=== PATIENT | female | born 1960 ===

== ENCOUNTER 2017-02-24 14:25 | Inpatient (IN) | payer OTHER ==
[2017-02-24 14:25] VITALS: BMI 25.4
--- NOTE | 2017-02-24 14:58 | C.PDOC ---
History Of Present Illness 56 y/o with a hx of hypolipidemia, HTN, and HIV with an unknown CD 4 count and viral load, comes in for right sided weakness and slurred speech for 2 days. Patient was sent by his director of primary for evaluation. Patient has a hx of previous strokes without residual deficits. Denies fever, chills, cough, or any other complaints. Time Seen by Provider: 02/24/17 14:34 Chief Complaint (Nursing): High Blood Pressure History Per: Patient History/Exam Limitations: no limitations Onset/Duration Of Symptoms: Days (2) Current Symptoms Are (Timing): Still Present Associated Symptoms: denies: Blurred Vision, Focal Weakness, Headache Severity: Mild Recent travel outside of the [place]: No Additional History Per: Patient Past Medical History Reviewed: Historical Data, Nursing Documentation, Vital Signs Vital Signs: Last Vital Signs Temp 98.1 F 02/24/17 14:29 Pulse 64 02/24/17 16:38 Resp 16 02/24/17 16:38 BP 161/78 H 02/24/17 16:38 Pulse Ox 99 02/24/17 18:02 - Medical History PMH: HIV, HTN Denies: Chronic Kidney Disease Surgical History: CABG - [facility] Procedures EXCISION OF STOMACH, ENDO, DIAGN (03/02/15) FLUOROSCOPY OF LEFT HEART USING LOW OSMOLAR CONTRAST (03/02/15) FLUOROSCOPY OF MULT COR ART USING L OSM CONTRAST (03/02/15) MEASURE OF CARDIAC SAMPL & PRESSURE, L HEART, PERC APPROACH (03/02/15) Family History: States: Unknown Family Hx - Social History Hx Alcohol Use: No Hx Substance Use: Yes (former) - Immunization History Hx Tetanus Toxoid Vaccination: No Hx Influenza Vaccination: Yes Hx Pneumococcal Vaccination: Yes Review Of Systems Except As Marked, All Systems Reviewed And Found Negative. Constitutional: Negative for: Fever, Chills Eyes: Negative for: Vision Change Respiratory: Negative for: Cough Neurological: Positive for: Change in Speech (slurred), Other (Right sided weakness). Negative for: Weakness, Numbness, Headache Physical Exam - Physical Exam Appears: Non-toxic, No Acute Distress Skin: Warm, Dry Head: Atraumatic, Normacephalic Oral Mucosa: Moist Cardiovascular: Rhythm Regular, No Murmur Respiratory: Normal Breath Sounds, No Rales, No Rhonchi, No Wheezing Gastrointestinal/Abdominal: Soft, No Tenderness Extremity: Normal ROM (x4) Neurological/Psych: Oriented x3, No Normal Speech (Slurred speech), Normal Cognition, Other (No focal deficit) ED Course And Treatment - Laboratory Results Result Diagrams: 02/24/17 15:18 02/24/17 15:18 O2 Sat by Pulse Oximetry: 99 (RA) Pulse Ox Interpretation: Normal - CT Scan/US CT Head w/o/ Other Rad Studies (CT/US): Interpreted By Me, Read By Radiologist CT/US Interpretation: IMPRESSION: Generalized atrophy. Nonspecific white matter changes. 6 mm left basal ganglia chronic lacunar infarct. Small fluid/ opacification of the left mastoid air cells; correlate clinically for mastoiditis. Partial opacification of bilateral external auditory canals, likely cerumen. NIHSS Stroke Scale - How Severe is the Stoke Level of Consciousness: 0=Alert LOC to Questions: 0=Both comments correct LOC to commands: 0=Obeys both correctly Best Gaze: 0=Normal Visual: 0=No visual loss Facial: 1=Minor asymmetry Motor Arm - Left: 0=No drift Motor Arm - Right: 1=Drift noted before 10 sec Motor Leg - Left: 0=No drift Motor Leg - Right: 1=Drift before 5 sec Limb Ataxia: 0=Absent Sensory: 0=Normal Best Language: 1=Mild to moderate aphasia Dysarthia: 1=Mild to moderate slurring Extinction & Inattention (Neglect): 0=Normal, no object Score: 5 Severity Of Stroke: 5-15= Moderate Stroke rTPA Inclusion/Exclusion - Refusal of Treatment Patient Refused Treatment: No - Inclusion Criteria for Altepase Patient is 18 years or Older: Yes The Clinical Diagnosis of Ischemic Stroke That is Causing a Potentially Disabling Neurological Deficit: No Time of Onset is Well Established to be Less Than 270 Minute Before Treatment Would Begin: No Risk/Benefit Discussed With Patient/Family Member Present: No Medical Decision Making Medical Decision Making: Plans: * Blood labs * CT Head w/o * EKG * CXR * IV fluids * UA Disposition - Disposition Disposition: HOSPITALIZED Disposition Time: 04:00 Condition: STABLE - Clinical Impression Clinical Impression: Weakness - Scribe Statement The provider has reviewed the documentation as recorded by the Scribe [email or web address] All medical record entries made by the Scribe were at my direction and personally dictated by me. I have reviewed the chart and agree that the record accurately reflects my personal performance of the history, physical exam, medical decision making, and the department course for this patient. I have also personally directed, reviewed, and agree with the discharge instructions and disposition. Decision To Admit - Pt Status Changed To: Hospital Disposition Of: Inpatient - Admit Certification Admit to Inpatient:: After my assessment, the patient will require hospitalization for at least two midnights. This is because of the severity of symptoms shown, intensity of services needed, and/or the medical risk in this patient being treated as an outpatient. - InPatient: Physician Admission Certification: I certify that this patient requires 2 or more midnights of care for the following reason:: suspected cva - . Bed Request Type: Telemetry Admitting Physician: Marco Sepulveda Patient Diagnosis: Weakness
[2017-02-24 15:25] LABS: BASO # 0.1 K/uL (0.0-0.2); EOS # 0.2 K/uL (0.0-0.7); EOS % 1.8 % (0.0-4.0); HEMATOCRIT 39.8 % (34.0-47.0); LYMPH # 2.8 K/uL (1.0-4.3); LYMPH % 31.7 % (20.0-40.0); MEAN CORPUSCULAR HEMOGLOBIN 29.4 pg (27.0-31.0); MEAN CORPUSCULAR HGB CONC 33.2 g/dL (33.0-37.0); MEAN PLATELET VOLUME 8.3 fL (7.2-11.7); MONO # 0.6 K/uL (0.0-0.8); NRBC % 0.1 % (0.0-2.0); RED CELL DISTRIBUTION WIDTH 15.1 % (11.5-14.5)
[2017-02-24 15:27] LABS: WHITE BLOOD COUNT 8.9 K/uL (4.8-10.8)
[2017-02-24 15:28] LABS: MEAN CELL VOLUME 88.5 fL (81.0-99.0)
[2017-02-24 15:33] LABS: CHLORIDE 99 mmol/L (98-107)
[2017-02-24 15:34] LABS: SODIUM 136 mmol/L (132-148)
[2017-02-24 15:35] LABS: POTASSIUM 3.8 mmol/L (3.6-5.2)
[2017-02-24 15:36] LABS: CARBON DIOXIDE 26 mmol/L (22-30); CHOLESTEROL 143 mg/dL (0-199); GFR AFRICAN-AMERICAN > 60
[2017-02-24 15:37] LABS: ALKALINE PHOSPHATASE 83 U/L (38-126); ALT/SGPT 36 U/L (9-52); AST/SGOT 24 U/L (14-36); BILIRUBIN,TOTAL 0.8 mg/dL (0.2-1.3); BLOOD UREA NITROGEN 20 mg/dL (7-17); CALCIUM 9.2 mg/dl (8.6-10.4); GLUCOSE,RANDOM 86 mg/dL (65-105); TOTAL PROTEIN 9.6 g/dL (6.3-8.3)
--- NOTE | 2017-02-24 15:59 | CT ---
PROCEDURE: CT HEAD WITHOUT CONTRAST. HISTORY: weakness COMPARISON: Noncontrast head CT performed 03/02/15 TECHNIQUE: Axial computed tomography images were obtained through the head/brain without intravenous contrast. Radiation dose: Total exam DLP = 786.84 mGy-cm. This CT exam was performed using one or more of the following dose reduction techniques: Automated exposure control, adjustment of the mA and/or kV according to patient size, and/or use of iterative reconstruction technique. FINDINGS: HEMORRHAGE: No intracranial hemorrhage. BRAIN: Diffuse atrophy with prominence of the ventricles and sulci noted. No mass effect or edema. Scattered periventricular and subcortical white matter hypodensities, which are nonspecific, but often seen with chronic microvascular ischemic disease. 6 mm left basal ganglia chronic lacunar infarct. Please note that MRI with diffusion imaging is more sensitive in the detection of acute ischemic event. VENTRICLES: No hydrocephalus. CALVARIUM: Unremarkable. PARANASAL SINUSES: Unremarkable as visualized. No significant inflammatory changes. MASTOID AIR CELLS: Small fluid/ opacification of the left mastoid air cells; correlate clinically for mastoiditis. The right mastoid air cells appear clear. OTHER FINDINGS: Partial opacification of bilateral external auditory canals, likely cerumen. IMPRESSION: Generalized atrophy. Nonspecific white matter changes. 6 mm left basal ganglia chronic lacunar infarct. Small fluid/ opacification of the left mastoid air cells; correlate clinically for mastoiditis. Partial opacification of bilateral external auditory canals, likely cerumen.
[2017-02-24 16:28] LABS: RBC URINE 6 /hpf (0-3); URINE BACTERIA RARE (<OCC); URINE BILIRUBIN NEGATIVE (NEGATIVE); URINE COLOR Yellow (YELLOW); URINE GLUCOSE (UA) NORMAL (Normal); URINE KETONE NEGATIVE (NEGATIVE); URINE LEUKOCYTE ESTERASE NEG Leu/uL (Negative); URINE PROTEIN NEGATIVE (NEGATIVE); URINE UROBILINOGEN NORMAL mg/dL (0.2-1.0); WBC URINE 2 /hpf (0-5)
[2017-02-24 16:30] LABS: URINE BLOOD 1+ (NEGATIVE)
--- NOTE | 2017-02-24 17:23 | RAD ---
HISTORY: weakness COMPARISON: Chest x-ray performed 03/01/15 TECHNIQUE: Chest, one view. FINDINGS: LUNGS: No focal consolidation. Please note that chest x-ray has limited sensitivity for the detection of pulmonary masses. PLEURA: No significant pleural effusion identified. No definite pneumothorax . CARDIOVASCULAR: Median sternotomy wires with evidence of CABG. Heart size appears within normal limits. OSSEOUS STRUCTURES: Degenerative changes. VISUALIZED UPPER ABDOMEN: Unremarkable. OTHER FINDINGS: None. IMPRESSION: No focal consolidation, significant pleural effusion, or definite pneumothorax identified.
[2017-02-24] MEDS ORDERED: Gadodiamide 287 MG/ML VIAL (15ML) IV ONE (17:28)
[2017-02-24] MEDS: Nitroglycerin 2% Ointment Foilpak UD TOP SCH (19:36)
--- NOTE | 2017-02-24 22:58 | CP.PCM.HP ---
History of Present Illness - History of Present Illness History of Present Illness: CC: right sided weakness HPI: 56 y/o female with a hx of AIDS, hypolipidemia, HTN, and HIV with an unknown CD 4 count and viral load, comes in for right sided weakness and slurred speech for 2 days. pt is complaint with diet, medication and follow up.Patient was sent by his national park ranger for evaluation. Patient has a hx of previous strokes without residual deficits. Denies fever, chills, cough, or any other complaints. Present on Admission - Present on Admission Any Indicators Present on Admission: Yes Review of Systems - Review of Systems Systems not reviewed;Unavailable: Acuity of Condition - Constitutional Constitutional: Fatigue, Lethargy - EENT Eyes: absent: As Per HPI, Blind Spots, Blurred Vision, Change in Vision, Decreased Night Vision, Diplopia, Discharge, Dry Eye, Exophthalmos, Floaters, Irritation, Itchy Eyes, Loss of Peripheral Vision, Pain, Photophobia, Requires Corrective Lenses, Sees Flashes, Spots in Vision, Tunnel Vision, Other Visual Disturbances, Loss of Vision, Other Ears: absent: As Per HPI, Decreased Hearing, Ear Discharge, Ear Pain, Tinnitus, Abnormal Hearing, Disequilibrium, Dizziness, Other Nose/Mouth/Throat: absent: As Per HPI, Epistaxis, Nasal Congestion, Nasal Discharge, Nasal Obstruction, Nasal Trauma, Nose Pain, Post Nasal Drip, Sinus Pain, Sinus Pressure, Bleeding Gums, Change in Voice, Dental Pain, Dry Mouth, Dysphagia, Halitosis, Hoarsness, Lip Swelling, Mouth Lesions, Mouth Pain, Odynophagia, Sore Throat, Throat Swelling, Tongue Swelling, Facial Pain, Neck Pain, Neck Mass, Other - Genitourinary Genitourinary: absent: As Per HPI, Change in Urinary Stream, Difficulty Urinating, Dysuria, Flank Pain, Hematuria, Pyuria, Nocturia, Urinary Incontinence, Urinary Frequency, Urinary Hesitance, Urinary Urgency, Voiding Freq/Small Amts, Freq UTI, Hx Renal/Bladder Calculi, Hx /Renal Surgery, Bladder Distension, Other - Reproductive: Female Reproductive:Female: absent: As Per HPI, Amenorrhea, Amenorrhea/ Control, Currently Menstual, Cycle <21 Days, Cycle >35 Days, Cycle Variable, Menses 1-7 Days, Menses >/= 8 Days, Menses Variable, Cycle > 4 Weeks Between, No Menses for 6 Months, Heavy Menses, Light Menses, Normal Menses, Spotting Between Cycles , S/P Hysterectomy, Menopausal, Post Menopausal, Premenarche, Abnormal Vaginal Bleeding, Dysmenorrhea, Dyspareunia, Genital Lesions, Genital Pruritis, Pelvic Pain, Prolapse Symptoms, Sexual Dysfunction, Vaginal Discharge, Vaginal Dryness , Vaginal Odor, Vaginal Pruritis, Other - Musculoskeletal Musculoskeletal: absent: As Per HPI, Abnormal Gait, Arthralgias, Atrophy, Back Pain, Deformity, Joint Swelling, Limited Range of Motion, Loss of Height, Muscle Cramps, Muscle Weakness, Myalgias, Neck Pain, Numbness, Radiating Pain into Limb, Stiffness, Tingling, Other - Neurological Neurological: Focal Weakness. absent: As Per HPI, Abnormal Gait, Abnormal Hearing, Abnormal Movements, Abnormal Speech, Behavioral Changes, Burning Sensations, Confusion, Convulsions, Disequilibrium, Dizziness, Numbness, Frequent Falls, Headaches, Lack of Coordination, Loss of Vision, Memory Loss, Paresthesias, Radicular Pain, Restless Legs, Sensory Deficit, Syncope, Tingling , Tremor, Vertigo, Weakness, Other Visual Disturbances, Other - Psychiatric Psychiatric: absent: As Per HPI, Abnormal Sleep Pattern, Anhedonia, Anxiety, Auditory Hallucinations, Behavioral Changes, Change in Appetite, Change in Libido, Confusion, Depression, Difficulty Concentrating, Hallucinations, Homicidal Ideation, Hopelessness, Irritability, Memory Loss, Mood Swings, Panic Attacks, Paranoia, Suicidal Ideation, Visual Hallucinations, Tactile Hallucinations, Other Past Patient History - Past Medical History & Family History Past Medical History?: Yes - Past Social History Smoking Status: Former Smoker - CARDIAC Hx Hypertension: Yes - PULMONARY Hx Respiratory Disorders: No - NEUROLOGICAL Hx Neurological Disorder: No - HEENT Hx HEENT Problems: No - RENAL Hx Chronic Kidney Disease: No - ENDOCRINE/METABOLIC Hx Endocrine Disorders: No - HEMATOLOGICAL/ONCOLOGICAL Hx Human Immunodeficiency Virus (HIV): Yes - INTEGUMENTARY Hx Dermatological Problems: No - MUSCULOSKELETAL/RHEUMATOLOGICAL Hx Musculoskeletal Disorders: No Hx Falls: No - GASTROINTESTINAL Hx Gastrointestinal Disorders: No - GENITOURINARY/GYNECOLOGICAL Hx Genitourinary Disorders: No - PSYCHIATRIC Hx Substance Use: Yes (former) - SURGICAL HISTORY Hx Coronary Artery Bypass Graft: Yes - ANESTHESIA Hx Anesthesia: Yes Hx Anesthesia Reactions: No Hx Malignant Hyperthermia: No Meds Allergies/Adverse Reactions: Allergies Allergy/AdvReac Type Severity Reaction Status Date / Time No Known Allergies Allergy Verified 02/24/17 14:31 Physical Exam - Constitutional Appears: No Acute Distress - Head Exam Head Exam: ATRAUMATIC, NORMAL INSPECTION, NORMOCEPHALIC - Eye Exam Eye Exam: EOMI, Normal appearance, PERRL Pupil Exam: NORMAL ACCOMODATION, PERRL - Respiratory Exam Respiratory Exam: Clear to Auscultation Bilateral - Cardiovascular Exam Cardiovascular Exam: REGULAR RHYTHM - Rectal Exam Rectal Exam: Deferred Results - Vital Signs Recent Vital Signs: Last Vital Signs Temp 97.6 F 02/24/17 20:59 Pulse 58 L 02/24/17 20:59 Resp 20 02/24/17 20:59 BP 143/72 02/24/17 20:59 Pulse Ox 100 02/24/17 20:59 - Labs Result Diagrams: 02/24/17 15:18 02/24/17 15:18 Labs: Laboratory Results - last 24 hr 02/24/17 02/24/17 02/24/17 15:18 15:18 15:18 WBC 8.9 D RBC 4.50 Hgb 13.2 D Hct 39.8 MCV 88.5 D MCH 29.4 MCHC 33.2 RDW 15.1 H Plt Count 219 D MPV 8.3 Neut % (Auto) 58.5 Lymph % (Auto) 31.7 [place] % (Auto) 7.0 Eos % (Auto) 1.8 Baso % (Auto) 1.0 Neut # 5.2 Lymph # 2.8 [place] # 0.6 Eos # 0.2 Baso # 0.1 PT 11.5 INR 1.0 APTT 33 Sodium 136 Potassium 3.8 Chloride 99 Carbon Dioxide 26 Anion Gap 16 BUN 20 H Creatinine 0.8 Est GFR ( Amer) > 60 Est GFR (Non-Af Amer) > 60 Random Glucose 86 Hemoglobin A1c Calcium 9.2 Total Bilirubin 0.8 AST 24 ALT 36 Alkaline Phosphatase 83 Troponin I < 0.0120 Total Protein 9.6 H Albumin 4.8 Globulin 4.8 H Albumin/Globulin Ratio 1.0 Triglycerides 166 H D Cholesterol 143 LDL Cholesterol Direct 67 HDL Cholesterol 45 Urine Color Urine Clarity Urine pH Ur Specific [place] Urine Protein Urine Glucose (UA) Urine Ketones Urine Blood Urine Nitrate Urine Bilirubin Urine Urobilinogen Ur Leukocyte Esterase Urine WBC (Auto) Urine RBC (Auto) Ur Squamous Epith Cells Urine Bacteria Blood Type Antibody Screen 02/24/17 02/24/17 02/24/17 15:18 15:18 16:03 WBC RBC Hgb Hct MCV MCH MCHC RDW Plt Count MPV Neut % (Auto) Lymph % (Auto) [place] % (Auto) Eos % (Auto) Baso % (Auto) Neut # Lymph # [place] # Eos # Baso # PT INR APTT Sodium Potassium Chloride Carbon Dioxide Anion Gap BUN Creatinine Est GFR ( Amer) Est GFR (Non-Af Amer) Random Glucose Hemoglobin A1c 5.6 Calcium Total Bilirubin AST ALT Alkaline Phosphatase Troponin I Total Protein Albumin Globulin Albumin/Globulin Ratio Triglycerides Cholesterol LDL Cholesterol Direct HDL Cholesterol Urine Color Yellow Urine Clarity Clear Urine pH 6.0 Ur Specific [place] 1.021 Urine Protein Negative Urine Glucose (UA) Normal Urine Ketones Negative Urine Blood 1+ H Urine Nitrate Negative Urine Bilirubin Negative Urine Urobilinogen Normal Ur Leukocyte Esterase Neg Urine WBC (Auto) 2 Urine RBC (Auto) 6 H Ur Squamous Epith Cells 2 Urine Bacteria Rare Blood Type O POSITIVE Antibody Screen Negative Assessment & Plan (1) TIA (transient ischemic attack) Status: Acute (2) Weakness Status: Acute (3) Anemia Status: Acute (4) HIV (human immunodeficiency virus infection) Status: Acute (5) HTN (hypertension) Status: Acute
[2017-02-25] MEDS: Nitroglycerin 2% Ointment Foilpak UD TOP SCH ×4 (01:30→18:31)
--- NOTE | 2017-02-25 06:19 | CP.PCM.CON ---
History of Present Illness - History of Present Illness History of Present Illness: CONSULT DICTATED RIGHT HEMIPARESIS DUE TO LEFT SUBCORTICAL ISCHEMIA MRI EXT CAPS SUBACUTE STROKE ASA FAILURE - ADDED PLAVIX PT CAROTID/ECHO/EEG CARDIO AND ID TO FOLLOW Past Patient History - Past Medical History & Family History Past Medical History?: Yes - Past Social History Smoking Status: Former Smoker - CARDIAC Hx Hypertension: Yes - PULMONARY Hx Respiratory Disorders: No - NEUROLOGICAL Hx Neurological Disorder: No - HEENT Hx HEENT Problems: No - RENAL Hx Chronic Kidney Disease: No - ENDOCRINE/METABOLIC Hx Endocrine Disorders: No - HEMATOLOGICAL/ONCOLOGICAL Hx Human Immunodeficiency Virus (HIV): Yes - INTEGUMENTARY Hx Dermatological Problems: No - MUSCULOSKELETAL/RHEUMATOLOGICAL Hx Musculoskeletal Disorders: No Hx Falls: No - GASTROINTESTINAL Hx Gastrointestinal Disorders: No - GENITOURINARY/GYNECOLOGICAL Hx Genitourinary Disorders: No - PSYCHIATRIC Hx Substance Use: Yes (former) - SURGICAL HISTORY Hx Coronary Artery Bypass Graft: Yes - ANESTHESIA Hx Anesthesia: Yes Hx Anesthesia Reactions: No Hx Malignant Hyperthermia: No Meds Allergies/Adverse Reactions: Allergies Allergy/AdvReac Type Severity Reaction Status Date / Time No Known Allergies Allergy Verified 02/24/17 14:31 - Medications Medications: Current Medications Aspirin (Ecotrin) 81 mg PO DAILY [facility] Clopidogrel Bisulfate (Plavix) 75 mg PO DAILY [facility] Darunavir (Prezista) 800 mg PO DAILY [facility] Emtricitabine/Tenofovir (Truvada 200 Mg-300 Mg) 1 tab PO DAILY [facility] Enalapril Maleate (Vasotec) 10 mg PO DAILY [facility] Enoxaparin Sodium (Lovenox) 40 mg SC DAILY [facility] Hydrochlorothiazide (Hydrodiuril) 25 mg PO DAILY [facility] Metoprolol Succinate (Toprol Xl) 50 mg PO DAILY [facility] Nitroglycerin (Nitro-Bid 2% Oint) 1 ea TOP Q6H [facility] Last Admin: 02/25/17 01:30 Dose: Not Given Ritonavir (Norvir) 100 mg PO DAILY [facility] Rosuvastatin Calcium (Crestor) 10 mg PO HS [facility] Last Admin: 02/24/17 23:14 Dose: 10 mg Results - Vital Signs Recent Vital Signs: Last Vital Signs Temp 98.2 F 02/25/17 04:00 Pulse 59 L 02/25/17 04:00 Resp 20 02/25/17 04:00 BP 142/81 02/25/17 04:00 Pulse Ox 96 02/25/17 04:00 - Labs Result Diagrams: 02/24/17 15:18 02/24/17 15:18 Labs: Laboratory Results - last 24 hr 02/24/17 02/24/17 02/24/17 15:18 15:18 15:18 WBC 8.9 D RBC 4.50 Hgb 13.2 D Hct 39.8 MCV 88.5 D MCH 29.4 MCHC 33.2 RDW 15.1 H Plt Count 219 D MPV 8.3 Neut % (Auto) 58.5 Lymph % (Auto) 31.7 [place] % (Auto) 7.0 Eos % (Auto) 1.8 Baso % (Auto) 1.0 Neut # 5.2 Lymph # 2.8 [place] # 0.6 Eos # 0.2 Baso # 0.1 PT 11.5 INR 1.0 APTT 33 Sodium 136 Potassium 3.8 Chloride 99 Carbon Dioxide 26 Anion Gap 16 BUN 20 H Creatinine 0.8 Est GFR ( Amer) > 60 Est GFR (Non-Af Amer) > 60 Random Glucose 86 Hemoglobin A1c Calcium 9.2 Total Bilirubin 0.8 AST 24 ALT 36 Alkaline Phosphatase 83 Troponin I < 0.0120 Total Protein 9.6 H Albumin 4.8 Globulin 4.8 H Albumin/Globulin Ratio 1.0 Triglycerides 166 H D Cholesterol 143 LDL Cholesterol Direct 67 HDL Cholesterol 45 Urine Color Urine Clarity Urine pH Ur Specific [place] Urine Protein Urine Glucose (UA) Urine Ketones Urine Blood Urine Nitrate Urine Bilirubin Urine Urobilinogen Ur Leukocyte Esterase Urine WBC (Auto) Urine RBC (Auto) Ur Squamous Epith Cells Urine Bacteria Blood Type Antibody Screen 02/24/17 02/24/17 02/24/17 15:18 15:18 16:03 WBC RBC Hgb Hct MCV MCH MCHC RDW Plt Count MPV Neut % (Auto) Lymph % (Auto) [place] % (Auto) Eos % (Auto) Baso % (Auto) Neut # Lymph # [place] # Eos # Baso # PT INR APTT Sodium Potassium Chloride Carbon Dioxide Anion Gap BUN Creatinine Est GFR ( Amer) Est GFR (Non-Af Amer) Random Glucose Hemoglobin A1c 5.6 Calcium Total Bilirubin AST ALT Alkaline Phosphatase Troponin I Total Protein Albumin Globulin Albumin/Globulin Ratio Triglycerides Cholesterol LDL Cholesterol Direct HDL Cholesterol Urine Color Yellow Urine Clarity Clear Urine pH 6.0 Ur Specific [place] 1.021 Urine Protein Negative Urine Glucose (UA) Normal Urine Ketones Negative Urine Blood 1+ H Urine Nitrate Negative Urine Bilirubin Negative Urine Urobilinogen Normal Ur Leukocyte Esterase Neg Urine WBC (Auto) 2 Urine RBC (Auto) 6 H Ur Squamous Epith Cells 2 Urine Bacteria Rare Blood Type O POSITIVE Antibody Screen Negative
--- NOTE | 2017-02-25 09:05 | CON ---
NEUROLOGY CONSULTATION DATE: 02/25/2017 ATTENDING PHYSICIAN: Marco Sepulveda MD LOCATION: The patient's room no #657, bed A. REASON FOR CONSULTATION: New right-sided weakness. CHIEF COMPLAINT: The patient was brought into [facility] as per the advice from her Water Valve Mechanic because of her 2 days history of left-sided numbness and weakness. From neurological point of view, I was called in to evaluate for further management. HISTORY OF PRESENT ILLNESS: Ms. Diana Acevedo is a 56-year-old right handed pleasant Qatari speaking female, usual state of health 2 days ago she woke up with right sided facial swelling and cramps on the right arm and leg. Since she had a stroke before in the past, she feel this symptom is similar to that and worsening than what she had before in the past. She also stumbling on her right side while she was walking. Slurred speech also presenting with these symptoms, however, she feels much better than before. Denies headache. No visual or bulbar dysfunction. No history of fall. No history of involuntary movements associating with this problem. PAST MEDICAL HISTORY: Hypertension, dyslipidemia, HIV disease, being diagnosed 16 years ago. History of coronary artery bypass surgery 2 years ago. PERSONAL HISTORY: History of heroin abuse 3 years ago, been stopped under rehab program in the past. She is also a former smoker and alcohol use, however, all have been stopped for the last 3 years ever since she had a stroke. REVIEW OF SYSTEMS: A 16-point of systems have been reviewed. From neuro, the patient had new weakness on her right side. MEDICATION AT HOME: She has been on aspirin, clonidine, Lipitor, enalapril, Norvir, metoprolol, Truvada, and Prezista. PHYSICAL EXAMINATION VITAL SIGNS: Blood pressure 142/81, mean arterial pressure of 101, respiratory rate 16, temperature afebrile. NECK: Supple. No carotid bruit on her left side. Right side, she had some soft bruits heard. HEART: Sounds split. Second heart sound with systolic murmur grade 1. Postsurgical scar seen in midsternal region. EXTREMITIES: No edema in legs. NEUROLOGIC: The patient is awake, alert, and oriented to person, place, and time. Her speech is clear. Naming, repetition, fluency, and comprehension all within normal. CRANIAL NERVE EXAMINATION: Visual field is intact. Pupil are reactive to light. Extraocular movement normal. No nystagmus. No facial sensory deficit. Significant facial asymmetry manifesting as flattening of the right nasolabial fold. Hearing intact. Good gag. Tongue is moist. MOTOR EXAMINATION: Outstretched hand with eyes closed, no drift noted. No tremor on outstretched hand. Strength is normal tone, is slightly increased on her right side to compare with the left side. DEEP TENDON REFLEXES: Absent for upper extremities, both knees are 3+, both ankles are absent. Plantars are upgoing on both sides. SENSORY EXAMINATION: Mild sensory and motor neuropathy. No cortical sensory loss. COORDINATION: Intact. Gait; hemiparetic gait on right side. WORKUP: CT of the head reviewed atrophy, periventricular ischemic changes. MRI of the brain also reviewed by me showed multiple periventricular ischemic changes noted from the brain all the way down to the brainstem. The patient also showed evidence of subacute stroke process in left external capsular region, which consisted with her current symptom. The patient also showed evidence of atrophy. Blood workup: WBC 8.9, hemoglobin 13.2, hematocrit 39.8, platelet 219. PT 11.5, INR 1.0, PTT 33. Sodium 136, potassium 3.8, chloride 99, bicarbonate 26, BUN 20, GFR more than 60, hemoglobin A1c 5.6, AST 24, ALT 36, troponin 0.0120, protein 9.6, triglyceride 166, cholesterol 143, LDL 67, HDL 45. Urinalysis shows 1+ blood with 6 rbc. EKG in sinus rhythm. CONCLUSION: Ms. Diana Acevedo has been presenting from the followin. Left subacute ischemic process manifesting with right hemiparesis. The patient has been failing with aspirin. 2. Bilateral distal symmetric sensorimotor neuropathy. 3. Multi infarction possible mild cognitive impairment. RECOMMENDATIONS: 1. Carotid Doppler/EEG/echocardiogram to be done to rule out any thrombogenesis and any probable electrophysiological activities consistent with the seizures. 2. ID followup and Cardiology followup was recommended. 3. I would like to put her on Plavix at least for 6 months when she is stable, we could switch back her to aspirin. While she is in the hospital, the patient definitely need physical therapy to improve her ambulation. 4. Continue with the present management. The patient will be followed while she is in the hospital. Frank Lopez MD [facility] # [id number]
[2017-02-25] MEDS: Enoxaparin 40 mg Syringe SC SCH (09:18)
[2017-02-25] MEDS: Emtricitabine-Tenofovir 200 mg-300 mg Tab PO SCH (09:18)
[2017-02-25] MEDS ORDERED: Metoprolol Succinate 50 mg XL Tab PO SCH (10:00)
--- NOTE | 2017-02-25 11:14 | MRI ---
PROCEDURE: MRI BRAIN WITH AND WITHOUT CONTRAST HISTORY: CVA COMPARISON: Noncontrast head CT from 02/24/2017 TECHNIQUE: Multiplanar, multisequence MR images of the brain were obtained with and without intravenous contrast enhancement. 12 mL Omniscan was injected intravenously. FINDINGS: HEMORRHAGE: None DWI: No evidence of an acute or early subacute infarction. BRAIN PARENCHYMA: There is an old lacunar infarction in the left powell radiata. There are severe chronic microangiopathic changes. There is no mass, mass effect or abnormal extra-axial fluid collection. The midline sagittal structures are normal. ENHANCEMENT: No abnormal intracranial enhancement. VENTRICLES: There is mild global parenchymal volume loss and proportionate enlargement of the ventricles and cortical sulci. CRANIUM: There is normal bone marrow signal pattern. ORBITS: Grossly unremarkable. PARANASAL SINUSES/MASTOIDS: There is mild mucosal thickening in the right maxillary sinus. The remaining included paranasal sinuses are predominantly clear. There is a large left mastoid effusion. The right mastoid air cells are clear P VASCULAR SYSTEM: There are normal signal voids in the larger intracranial arteries. OTHER FINDINGS: None . IMPRESSION: 1. No acute intracranial abnormality. Specifically, no evidence of acute infarction. 2. Old lacunar infarction in the left powell radiata. 3. Severe chronic microangiopathic changes and mild global parenchymal volume loss, slightly advanced for the patient's age. 4. Large left mastoid effusion. A preliminary report was provided by [employer].
[2017-02-25] MEDS ORDERED: Metoprolol Succinate 25 mg XL Tab PO SCH (11:30)
--- NOTE | 2017-02-25 12:19 | VASCLAB ---
PROCEDURE: HISTORY: Right sided weakness COMPARISON: Last carotid duplex exam 03/06/2015, normal. TECHNIQUE: Grayscale and duplex Doppler evaluation of the cervical carotid and vertebral arteries were performed. The common carotid, carotid bifurcations and cervical Internal Carotid Artery (ICA) and proximal External Carotid Artery (ECA) were evaluated. The vertebral arteries were evaluated for gross patency and flow direction. Report prepared by ELIZABETH Curry FINDINGS: RIGHT CAROTID ARTERIES: 1. Common Carotid Artery: No significant focal plaque formation of the right common carotid artery. Maximum Peak Systolic velocity: 74 cm/sec: End-diastolic velocity 13 cm/sec. 2. Carotid Bifurcation: plaque formation. Maximum Peak Systolic velocity: 45 cm/sec: End-diastolic velocity 11 cm/sec. 3. Internal Carotid Artery: Plaque description: 3.1. Proximal Segment: Peak systolic velocity 52 cm/sec: End-diastolic velocity 15 cm/sec - % stenosis 0-15% 3.2. Middle Segment: Peak systolic velocity 70 cm/sec: End-diastolic velocity 20 cm/sec - % stenosis 0-15% 3.3. Distal Segment: Peak systolic velocity 67 cm/sec: End-diastolic velocity 21 cm/sec - % stenosis 0-15% 4. External Carotid Artery: No significant focal plaque formation. Peak systolic velocity 79 cm/sec 5. ICA/CCA Ratio: 1.4 LEFT CAROTID ARTERIES: 1. Common Carotid Artery: No significant focal plaque formation of the left common carotid artery. Maximum Peak Systolic velocity: 61 cm/sec: End-diastolic velocity 14 cm/sec. 2. Carotid Bifurcation: Minimal calcific plaque formation. Maximum Peak Systolic velocity: 40 cm/sec: End-diastolic velocity 11 cm/sec. 3. Internal Carotid Artery: Plaque description: Minimal calcific 3.1. Proximal Segment: Peak systolic velocity 54 cm/sec: End-diastolic velocity 15 cm/sec - % stenosis 0-15% 3.2. Middle Segment: Peak systolic velocity 81 cm/sec: End-diastolic velocity 18 cm/sec - % stenosis 0-15% 3.3. Distal Segment: Peak systolic velocity 76 cm/sec: End-diastolic velocity 20 cm/sec - % stenosis 0-15% 4. External Carotid Artery: No significant focal plaque formation. Peak systolic velocity 77 cm/sec 5. ICA/CCA Ratio: 1.3 VERTEBRAL ARTERIES: 1. Right Vertebral Artery: The right vertebral artery flow direction is antegrade. 2. Left Vertebral Artery: The left vertebral artery flow direction is antegrade. OTHER FINDINGS: 1. Right Brachial Blood pressure: 180 mmHg. 2. Left Brachial Blood pressure: 170 mmHg. IMPRESSION: RIGHT: Duplex scan does not suggest hemodynamically significant stenosis of the right extracranial carotid arteries. LEFT: Duplex scan does not suggest hemodynamically significant stenosis of the left extracranial carotid arteries.
--- NOTE | 2017-02-25 23:36 | CP.PCM.PN ---
Subjective - Date & Time of Evaluation Date of Evaluation: 02/25/17 Time of Evaluation: 20:40 - Subjective Subjective: Pt seen and examined at bedside, denies any numbness, parasthesia of left upper extremity, doing well Objective - Vital Signs/Intake and Output Vital Signs (last 24 hours): Temp Pulse Resp BP Pulse Ox 98.5 F 66 20 171/85 H 96 02/25/17 15:31 02/25/17 15:31 02/25/17 15:31 02/25/17 15:31 02/25/17 15:31 - Medications Medications: Current Medications Aspirin (Ecotrin) 81 mg PO DAILY [facility] Last Admin: 02/25/17 09:18 Dose: 81 mg Clopidogrel Bisulfate (Plavix) 75 mg PO DAILY [facility] Last Admin: 02/25/17 09:18 Dose: 75 mg Darunavir (Prezista) 800 mg PO DAILY [facility] Last Admin: 02/25/17 09:18 Dose: 800 mg Emtricitabine/Tenofovir (Truvada 200 Mg-300 Mg) 1 tab PO DAILY [facility] Last Admin: 02/25/17 09:18 Dose: 1 tab Enalapril Maleate (Vasotec) 20 mg PO DAILY [facility] Enoxaparin Sodium (Lovenox) 40 mg SC DAILY [facility] Last Admin: 02/25/17 09:18 Dose: 40 mg Hydrochlorothiazide (Hydrodiuril) 25 mg PO DAILY [facility] Last Admin: 02/25/17 09:18 Dose: 25 mg Metoprolol Succinate (Toprol Xl) 25 mg PO DAILY [facility] Nitroglycerin (Nitro-Bid 2% Oint) 1 ea TOP Q6H [facility] Last Admin: 02/25/17 18:31 Dose: 1 ea Ritonavir (Norvir) 100 mg PO DAILY [facility] Last Admin: 02/25/17 09:18 Dose: 100 mg Rosuvastatin Calcium (Crestor) 10 mg PO HS [facility] Last Admin: 02/25/17 21:53 Dose: 10 mg - Labs Labs: 02/24/17 15:18 02/24/17 15:18 PT 11.5 SECONDS (9.7-12.2) 02/24/17 15:18 INR 1.0 02/24/17 15:18 APTT 33 SECONDS (21-34) 02/24/17 15:18 - Constitutional Appears: No Acute Distress - Head Exam Head Exam: ATRAUMATIC, NORMAL INSPECTION, NORMOCEPHALIC - Eye Exam Eye Exam: EOMI, Normal appearance, PERRL Pupil Exam: NORMAL ACCOMODATION, PERRL - ENT Exam ENT Exam: Mucous Membranes Moist, Normal Exam - Respiratory Exam Respiratory Exam: Clear to Ausculation Bilateral, NORMAL BREATHING PATTERN - Cardiovascular Exam Cardiovascular Exam: REGULAR RHYTHM, +S1, +S2. absent: Murmur - GI/Abdominal Exam GI & Abdominal Exam: Soft, Normal Bowel Sounds. absent: Tenderness Assessment and Plan (1) TIA (transient ischemic attack) Status: Acute (2) Weakness Status: Acute (3) Anemia Status: Acute (4) HTN (hypertension) Status: Acute
--- NOTE | 2017-02-26 00:04 | CP.PCM.CON ---
History of Present Illness - History of Present Illness History of Present Illness: Patient admitted for CVA ECHO ordered Past Patient History - Past Medical History & Family History Past Medical History?: Yes - Past Social History Smoking Status: Former Smoker - CARDIAC Hx Hypertension: Yes - PULMONARY Hx Respiratory Disorders: No - NEUROLOGICAL Hx Neurological Disorder: No - HEENT Hx HEENT Problems: No - RENAL Hx Chronic Kidney Disease: No - ENDOCRINE/METABOLIC Hx Endocrine Disorders: No - HEMATOLOGICAL/ONCOLOGICAL Hx Human Immunodeficiency Virus (HIV): Yes - INTEGUMENTARY Hx Dermatological Problems: No - MUSCULOSKELETAL/RHEUMATOLOGICAL Hx Musculoskeletal Disorders: No Hx Falls: No - GASTROINTESTINAL Hx Gastrointestinal Disorders: No - GENITOURINARY/GYNECOLOGICAL Hx Genitourinary Disorders: No - PSYCHIATRIC Hx Substance Use: Yes (former) - SURGICAL HISTORY Hx Coronary Artery Bypass Graft: Yes - ANESTHESIA Hx Anesthesia: Yes Hx Anesthesia Reactions: No Hx Malignant Hyperthermia: No Meds Allergies/Adverse Reactions: Allergies Allergy/AdvReac Type Severity Reaction Status Date / Time No Known Allergies Allergy Verified 02/24/17 14:31 - Medications Medications: Current Medications Aspirin (Ecotrin) 81 mg PO DAILY [facility] Last Admin: 02/25/17 09:18 Dose: 81 mg Clopidogrel Bisulfate (Plavix) 75 mg PO DAILY [facility] Last Admin: 02/25/17 09:18 Dose: 75 mg Darunavir (Prezista) 800 mg PO DAILY [facility] Last Admin: 02/25/17 09:18 Dose: 800 mg Emtricitabine/Tenofovir (Truvada 200 Mg-300 Mg) 1 tab PO DAILY [facility] Last Admin: 02/25/17 09:18 Dose: 1 tab Enalapril Maleate (Vasotec) 20 mg PO DAILY [facility] Enoxaparin Sodium (Lovenox) 40 mg SC DAILY [facility] Last Admin: 02/25/17 09:18 Dose: 40 mg Hydrochlorothiazide (Hydrodiuril) 25 mg PO DAILY [facility] Last Admin: 02/25/17 09:18 Dose: 25 mg Metoprolol Succinate (Toprol Xl) 25 mg PO DAILY [facility] Nitroglycerin (Nitro-Bid 2% Oint) 1 ea TOP Q6H [facility] Last Admin: 02/25/17 18:31 Dose: 1 ea Ritonavir (Norvir) 100 mg PO DAILY [facility] Last Admin: 02/25/17 09:18 Dose: 100 mg Rosuvastatin Calcium (Crestor) 10 mg PO HS [facility] Last Admin: 02/25/17 21:53 Dose: 10 mg Results - Vital Signs Recent Vital Signs: Last Vital Signs Temp 98.5 F 02/25/17 15:31 Pulse 66 02/25/17 15:31 Resp 20 02/25/17 15:31 BP 171/85 H 02/25/17 15:31 Pulse Ox 96 02/25/17 15:31 - Labs Result Diagrams: 02/24/17 15:18 02/24/17 15:18 Labs: Laboratory Results - last 24 hr 02/25/17 02/25/17 02/25/17 06:14 11:36 16:41 POC Glucose (mg/dL) 84 95 78
[2017-02-26] MEDS: Nitroglycerin 2% Ointment Foilpak UD TOP SCH ×4 (00:32→22:08)
--- NOTE | 2017-02-26 07:46 | CARD ---
APPROVED REPORT EXAM: Two-dimensional and M-mode echocardiogram with Doppler and color Doppler. Other Information Quality : GoodRhythm : NSR INDICATION CVA/TIA Cardiac Disease: CAD 2D DIMENSIONS IVSd0.9 (0.7-1.1cm)LVDd4.7 (3.9-5.9cm) PWd1.2 (0.7-1.1cm)LVDs2.6 (2.5-4.0cm) FS (%) 43.1 %LVEF (%)74.2 (>50%) M-Mode DIMENSIONS Left Atrium (MM)4.06 (2.5-4.0cm)Aortic Root3.78 (2.2-3.7cm) Aortic Cusp Exc.2.21 (1.5-2.0cm) Mitral Valve MV E Atgcgewl74.0cm/sMV A Ztfnjoha67.8cm/sE/A ratio1.0 TDI E/Lateral E'0.0E/Medial E'0.0 Tricuspid Valve TR Peak Gmzjkaur320cm/sTR Peak Gr.39hzGjFXCO29qmBd LEFT VENTRICLE The left ventricle is normal size. There is normal left ventricular wall thickness. Left ventricle systolic function is normal. The Ejection Fraction is >70%. There is normal LV segmental wall motion. The left ventricular diastolic function is normal. RIGHT VENTRICLE The right ventricle is normal size. There is normal right ventricular wall thickness. The right ventricular systolic function is normal. ATRIA The left atrium size is normal. The right atrium size is normal. The interatrial septum is intact with no evidence for an atrial septal defect. AORTIC VALVE The aortic valve is normal in structure. No aortic regurgitation is present. There is no aortic valvular stenosis. There is no aortic valvular vegetation. MITRAL VALVE The mitral valve is normal in structure. There is no evidence of mitral valve prolapse. There is no mitral valve stenosis. Mitral regurgitation is mild. TRICUSPID VALVE The tricuspid valve is normal in structure. There is mild tricuspid regurgitation. Right ventricular systolic pressure is estimated at 30-40 mmHg. There is no pulmonary hypertension. PULMONIC VALVE The pulmonic valve is not well visualized. There is mild pulmonic valvular regurgitation. GREAT VESSELS The aortic root is normal in size. PERICARDIAL EFFUSION There is no significant pericardial effusion. <Conclusion> Left ventricle systolic function is normal. The Ejection Fraction is >70%. No aortic regurgitation is present. Mitral regurgitation is mild. There is mild tricuspid regurgitation. There is no pulmonary hypertension. There is mild pulmonic valvular regurgitation.
--- NOTE | 2017-02-26 08:11 | PN ---
DATE: 02/26/2017 TIME OF EVALUATION: 6:25 a.m. NEUROLOGICAL PROBLEM: New right hemiparesis. The patient is awake, mentation is normal. Cranial nerves, mild asymmetry of right nasolabial fold. Right-sided symptoms almost gone as per the patient. Mildly hyperreflexic on her right side compared with left side, right Babinski sign. The patient was evaluated by physical therapy yesterday. Continue with present management. Her EEG been reviewed by me, does not show any paroxysmal activities or focal slowing noted. Continue with present management. The patient is medically stable from neurological point of view. Frank Lopez MD
--- NOTE | 2017-02-26 08:55 | EEG ---
DATE: 02/25/2017 This is a 16-channel electroencephalogram of awake and drowsy adult. During the study, photic stimulation was performed. Hyperventilation was not performed. Resting electroencephalogram consist of 20-30 microvolt, low amplitude, 9-11 Hz alpha activity seen at the parietal and occipital leads. Anteriorly, fast activity superimposed with a 2-3 Hz delta activity was seen at frontal and the central leads. Intermittent movement artifact contaminated with the background rhythm. The photic stimulation did not evoke driving response noted at 2-20 Hz. IMPRESSION: This is a normal electroencephalogram of awake and drowsy adult. During the study, neither electrocochleographic paroxysmal activities nor focal slowing noted. Frank Lopez MD
[2017-02-26] MEDS: Metoprolol Succinate 25 mg XL Tab PO SCH (09:34)
[2017-02-26] MEDS: Enoxaparin 40 mg Syringe SC SCH (09:35)
[2017-02-26] MEDS: Emtricitabine-Tenofovir 200 mg-300 mg Tab PO SCH (09:37)
[2017-02-26] MEDS ORDERED: Metoprolol Succinate 25 mg XL Tab PO SCH (10:00)
--- NOTE | 2017-02-26 15:07 | CP.PCM.PN ---
Subjective - Date & Time of Evaluation Date of Evaluation: 02/26/17 Time of Evaluation: 10:40 - Subjective Subjective: patient seen and examined today states feels better , denies any numbness, tinglings, headache, N/V BP - better controlled no overnight events reported by RN Objective - Vital Signs/Intake and Output Vital Signs (last 24 hours): Temp Pulse Resp BP Pulse Ox 97.7 F 72 17 150/73 98 02/26/17 07:00 02/26/17 07:35 02/26/17 07:00 02/26/17 09:32 02/26/17 07:00 Intake and Output: 02/26/17 02/26/17 06:59 18:59 Intake Total 0 Balance 0 - Medications Medications: Current Medications Aspirin (Ecotrin) 81 mg PO DAILY [facility] Last Admin: 02/26/17 09:31 Dose: 81 mg Clopidogrel Bisulfate (Plavix) 75 mg PO DAILY [facility] Last Admin: 02/26/17 09:31 Dose: 75 mg Darunavir (Prezista) 800 mg PO DAILY [facility] Last Admin: 02/26/17 09:34 Dose: 800 mg Emtricitabine/Tenofovir (Truvada 200 Mg-300 Mg) 1 tab PO DAILY [facility] Last Admin: 02/26/17 09:37 Dose: 1 tab Enalapril Maleate (Vasotec) 20 mg PO BID [facility] Enoxaparin Sodium (Lovenox) 40 mg SC DAILY [facility] Last Admin: 02/26/17 09:35 Dose: 40 mg Hydrochlorothiazide (Hydrodiuril) 25 mg PO DAILY [facility] Last Admin: 02/26/17 09:31 Dose: 25 mg Metoprolol Succinate (Toprol Xl) 25 mg PO DAILY [facility] Last Admin: 02/26/17 09:34 Dose: 25 mg Ritonavir (Norvir) 100 mg PO DAILY [facility] Last Admin: 02/26/17 09:34 Dose: 100 mg Rosuvastatin Calcium (Crestor) 10 mg PO HS [facility] Last Admin: 02/25/17 21:53 Dose: 10 mg - Labs Labs: 02/24/17 15:18 02/24/17 15:18 PT 11.5 SECONDS (9.7-12.2) 02/24/17 15:18 INR 1.0 02/24/17 15:18 APTT 33 SECONDS (21-34) 02/24/17 15:18 - Constitutional Appears: Well, No Acute Distress - Respiratory Exam Respiratory Exam: Clear to Ausculation Bilateral, NORMAL BREATHING PATTERN - Cardiovascular Exam Cardiovascular Exam: REGULAR RHYTHM, +S1, +S2 - Neurological Exam Neurological Exam: Alert, Awake, Oriented x3 Neuro motor strength exam: Right Upper Extremity: 4 Assessment and Plan - Assessment and Plan (Free Text) Assessment: A/P 56 yr old female admitted for weakness and slurred speech / TIA / Hypertension BP controlled CT- Generalized atrophy. Nonspecific white matter changes. 6 mm left basal ganglia chronic lacunar infarct. Small fluid/ opacification of the left mastoid air cells; correlate clinically for mastoiditis. Partial opacification of bilateral external auditory canals, likely cerumen. MRI- 1.No acute intracranial abnormality. Specifically, no evidence of acute infarction. 2. Old lacunar infarction in the left powell radiata. 3. Severe chronic microangiopathic changes and mild global parenchymal volume loss, slightly advanced for the patient's age. 4. Large left mastoid effusion. EEG- negative carotid duplex- Negative Patient accepted at [facility] for rehab D/W Dr. sepulveda, stable for discharge to [facility] today and Dr. Sepulveda will follow the patient at [facility] discharge plan discussed with patient who understands and agrees with plan
--- NOTE | 2017-02-26 20:26 | CP.PCM.PN ---
Subjective - Date & Time of Evaluation Date of Evaluation: 02/26/17 Time of Evaluation: 19:10 - Subjective Subjective: Patient s/p CVA Etiology unclear HTN Feels better Continue all medicatios Objective - Vital Signs/Intake and Output Vital Signs (last 24 hours): Temp Pulse Resp BP Pulse Ox 98.1 F 65 18 207/100 H 100 02/26/17 18:15 02/26/17 18:15 02/26/17 18:15 02/26/17 18:40 02/26/17 18:15 - Medications Medications: Current Medications Aspirin (Ecotrin) 81 mg PO DAILY [facility] Last Admin: 02/26/17 09:31 Dose: 81 mg Clopidogrel Bisulfate (Plavix) 75 mg PO DAILY [facility] Last Admin: 02/26/17 09:31 Dose: 75 mg Darunavir (Prezista) 800 mg PO DAILY [facility] Last Admin: 02/26/17 09:34 Dose: 800 mg Emtricitabine/Tenofovir (Truvada 200 Mg-300 Mg) 1 tab PO DAILY [facility] Last Admin: 02/26/17 09:37 Dose: 1 tab Enalapril Maleate (Vasotec) 20 mg PO BID [facility] Last Admin: 02/26/17 17:14 Dose: 20 mg Enoxaparin Sodium (Lovenox) 40 mg SC DAILY [facility] Last Admin: 02/26/17 09:35 Dose: 40 mg Hydrochlorothiazide (Hydrodiuril) 25 mg PO DAILY [facility] Last Admin: 02/26/17 09:31 Dose: 25 mg Metoprolol Succinate (Toprol Xl) 25 mg PO DAILY [facility] Last Admin: 02/26/17 09:34 Dose: 25 mg Nitroglycerin (Nitro-Bid 2% Oint) 1 ea TOP Q8 [facility] Last Admin: 02/26/17 18:52 Dose: 1 ea Ritonavir (Norvir) 100 mg PO DAILY [facility] Last Admin: 02/26/17 09:34 Dose: 100 mg Rosuvastatin Calcium (Crestor) 10 mg PO HS [facility] Last Admin: 02/25/17 21:53 Dose: 10 mg - Labs Labs: 02/24/17 15:18 02/24/17 15:18 PT 11.5 SECONDS (9.7-12.2) 02/24/17 15:18 INR 1.0 02/24/17 15:18 APTT 33 SECONDS (21-34) 02/24/17 15:18
--- NOTE | 2017-02-26 22:06 | CP.PCM.PN ---
Subjective - Date & Time of Evaluation Date of Evaluation: 02/26/17 Time of Evaluation: 18:00 - Subjective Subjective: patient seen and examined today states feels better , denies any numbness, tinglings, headache, N/V BP - better controlled no overnight events reported by RN Objective - Vital Signs/Intake and Output Vital Signs (last 24 hours): Temp Pulse Resp BP Pulse Ox 98.1 F 65 18 177/90 H 100 02/26/17 18:15 02/26/17 18:15 02/26/17 18:15 02/26/17 20:30 02/26/17 18:15 - Medications Medications: Current Medications Aspirin (Ecotrin) 81 mg PO DAILY [facility] Last Admin: 02/26/17 09:31 Dose: 81 mg Clopidogrel Bisulfate (Plavix) 75 mg PO DAILY [facility] Last Admin: 02/26/17 09:31 Dose: 75 mg Darunavir (Prezista) 800 mg PO DAILY [facility] Last Admin: 02/26/17 09:34 Dose: 800 mg Emtricitabine/Tenofovir (Truvada 200 Mg-300 Mg) 1 tab PO DAILY [facility] Last Admin: 02/26/17 09:37 Dose: 1 tab Enalapril Maleate (Vasotec) 20 mg PO BID [facility] Last Admin: 02/26/17 17:14 Dose: 20 mg Enoxaparin Sodium (Lovenox) 40 mg SC DAILY [facility] Last Admin: 02/26/17 09:35 Dose: 40 mg Hydrochlorothiazide (Hydrodiuril) 25 mg PO DAILY [facility] Last Admin: 02/26/17 09:31 Dose: 25 mg Metoprolol Succinate (Toprol Xl) 25 mg PO DAILY [facility] Last Admin: 02/26/17 09:34 Dose: 25 mg Nitroglycerin (Nitro-Bid 2% Oint) 1 ea TOP Q8 [facility] Last Admin: 02/26/17 18:52 Dose: 1 ea Ritonavir (Norvir) 100 mg PO DAILY [facility] Last Admin: 02/26/17 09:34 Dose: 100 mg Rosuvastatin Calcium (Crestor) 10 mg PO HS [facility] Last Admin: 02/25/17 21:53 Dose: 10 mg - Labs Labs: 02/24/17 15:18 02/24/17 15:18 PT 11.5 SECONDS (9.7-12.2) 02/24/17 15:18 INR 1.0 02/24/17 15:18 APTT 33 SECONDS (21-34) 02/24/17 15:18 - Constitutional Appears: No Acute Distress - Head Exam Head Exam: ATRAUMATIC, NORMAL INSPECTION, NORMOCEPHALIC - Eye Exam Eye Exam: EOMI, Normal appearance, PERRL Pupil Exam: NORMAL ACCOMODATION, PERRL - Respiratory Exam Respiratory Exam: Clear to Ausculation Bilateral, NORMAL BREATHING PATTERN - Cardiovascular Exam Cardiovascular Exam: REGULAR RHYTHM, +S1, +S2. absent: Murmur - GI/Abdominal Exam GI & Abdominal Exam: Soft, Normal Bowel Sounds. absent: Tenderness - Neurological Exam Neurological Exam: Alert, Awake, CN II-XII Intact, Normal Gait, Oriented x3 Assessment and Plan (1) TIA (transient ischemic attack) Status: Acute (2) Weakness Status: Acute (3) Anemia Status: Acute (4) HIV (human immunodeficiency virus infection) Status: Acute (5) HTN (hypertension) Status: Acute
[2017-02-27] MEDS: Nitroglycerin 2% Ointment Foilpak UD TOP SCH ×3 (06:52→21:37)
--- NOTE | 2017-02-27 08:28 | CARD ---
APPROVED REPORT EKG Measurement Heart [id number] <Conclusion> Normal sinus rhythm Nonspecific T wave abnormality Abnormal ECG
--- NOTE | 2017-02-27 08:28 | CARD ---
APPROVED REPORT EKG Measurement Heart [id number] RI 152P48 [id number] <Conclusion> Sinus bradycardia T wave abnormality, consider lateral ischemia Abnormal ECG
[2017-02-27] MEDS: Emtricitabine-Tenofovir 200 mg-300 mg Tab PO SCH (10:57)
[2017-02-27] MEDS: Metoprolol Succinate 25 mg XL Tab PO SCH (10:58)
[2017-02-27] MEDS: Enoxaparin 40 mg Syringe SC SCH (10:59)
[2017-02-27] MEDS ORDERED: guaiFENesin DM 200 mg-20 mg/10 ml UD PO PRN (12:00)
--- NOTE | 2017-02-27 14:44 | CP.PCM.PN ---
Subjective - Date & Time of Evaluation Date of Evaluation: 02/27/17 Time of Evaluation: 14:42 - Subjective Subjective: Alert and orientedx3, denies sob or chest pains noted, no distress. Objective - Vital Signs/Intake and Output Vital Signs (last 24 hours): Temp Pulse Resp BP Pulse Ox 98.0 F 81 18 149/77 98 02/27/17 07:53 02/27/17 09:00 02/27/17 07:53 02/27/17 10:57 02/27/17 07:53 Intake and Output: 02/27/17 02/27/17 06:59 18:59 Intake Total 560 Balance 560 - Medications Medications: Current Medications Aspirin (Ecotrin) 81 mg PO DAILY [facility] Last Admin: 02/27/17 10:57 Dose: 81 mg Clopidogrel Bisulfate (Plavix) 75 mg PO DAILY [facility] Last Admin: 02/27/17 10:58 Dose: 75 mg Darunavir (Prezista) 800 mg PO DAILY [facility] Last Admin: 02/27/17 10:58 Dose: 800 mg Emtricitabine/Tenofovir (Truvada 200 Mg-300 Mg) 1 tab PO DAILY [facility] Last Admin: 02/27/17 10:57 Dose: 1 tab Enalapril Maleate (Vasotec) 20 mg PO BID [facility] Last Admin: 02/27/17 10:57 Dose: 20 mg Enoxaparin Sodium (Lovenox) 40 mg SC DAILY [facility] Last Admin: 02/27/17 10:59 Dose: 40 mg Guaifenesin/Dextromethorphan (Robitussin Dm) 10 ml PO Q4H PRN PRN Reason: Cough and congestion Last Admin: 02/27/17 13:22 Dose: 10 ml Hydrochlorothiazide (Hydrodiuril) 25 mg PO DAILY [facility] Last Admin: 02/27/17 10:58 Dose: 25 mg Metoprolol Succinate (Toprol Xl) 25 mg PO DAILY [facility] Last Admin: 02/27/17 10:58 Dose: 25 mg Nitroglycerin (Nitro-Bid 2% Oint) 1 ea TOP Q8 [facility] Last Admin: 02/27/17 13:22 Dose: 1 ea Ritonavir (Norvir) 100 mg PO DAILY [facility] Last Admin: 02/27/17 10:58 Dose: 100 mg Rosuvastatin Calcium (Crestor) 10 mg PO HS [facility] Last Admin: 02/26/17 22:07 Dose: 10 mg - Labs Labs: 02/24/17 15:18 02/24/17 15:18 PT 11.5 SECONDS (9.7-12.2) 02/24/17 15:18 INR 1.0 02/24/17 15:18 APTT 33 SECONDS (21-34) 02/24/17 15:18 Assessment and Plan - Assessment and Plan (Free Text) Assessment: Patient is seen and examined. Alert and orientedx3, denies sob or chest pains. Blood pressure remains normal today, d/w DR Sepulveda, plan to discharge to [facility] today as arranged. Patient verbalized understanding.
[2017-02-27 17:40] VITALS: RESP 20; O2SAT 97
--- NOTE | 2017-02-27 22:10 | CP.PCM.PN ---
Subjective - Date & Time of Evaluation Date of Evaluation: 02/27/17 Time of Evaluation: 13:10 - Subjective Subjective: Patient with no cardiac events Vitals stable Neuro eval in progress Objective - Vital Signs/Intake and Output Vital Signs (last 24 hours): Temp Pulse Resp BP Pulse Ox 98.1 F 71 20 185/93 H 97 02/27/17 16:00 02/27/17 18:49 02/27/17 16:00 02/27/17 18:49 02/27/17 16:00 - Medications Medications: Current Medications Aspirin (Ecotrin) 81 mg PO DAILY [facility] Last Admin: 02/27/17 10:57 Dose: 81 mg Clopidogrel Bisulfate (Plavix) 75 mg PO DAILY [facility] Last Admin: 02/27/17 10:58 Dose: 75 mg Darunavir (Prezista) 800 mg PO DAILY [facility] Last Admin: 02/27/17 10:58 Dose: 800 mg Emtricitabine/Tenofovir (Truvada 200 Mg-300 Mg) 1 tab PO DAILY [facility] Last Admin: 02/27/17 10:57 Dose: 1 tab Enalapril Maleate (Vasotec) 20 mg PO BID [facility] Last Admin: 02/27/17 19:04 Dose: Not Given Enoxaparin Sodium (Lovenox) 40 mg SC DAILY [facility] Last Admin: 02/27/17 10:59 Dose: 40 mg Guaifenesin/Dextromethorphan (Robitussin Dm) 10 ml PO Q4H PRN PRN Reason: Cough and congestion Last Admin: 02/27/17 13:22 Dose: 10 ml Hydrochlorothiazide (Hydrodiuril) 25 mg PO DAILY [facility] Last Admin: 02/27/17 10:58 Dose: 25 mg Metoprolol Succinate (Toprol Xl) 25 mg PO DAILY [facility] Last Admin: 02/27/17 10:58 Dose: 25 mg Nitroglycerin (Nitro-Bid 2% Oint) 1 ea TOP Q8 [facility] Last Admin: 02/27/17 21:37 Dose: 1 ea Ritonavir (Norvir) 100 mg PO DAILY [facility] Last Admin: 02/27/17 10:58 Dose: 100 mg Rosuvastatin Calcium (Crestor) 10 mg PO HS [facility] Last Admin: 02/27/17 21:37 Dose: 10 mg - Labs Labs: 02/24/17 15:18 02/24/17 15:18 PT 11.5 SECONDS (9.7-12.2) 02/24/17 15:18 INR 1.0 02/24/17 15:18 APTT 33 SECONDS (21-34) 02/24/17 15:18
--- NOTE | 2017-02-27 23:34 | CP.PCM.PN ---
Subjective - Date & Time of Evaluation Date of Evaluation: 02/27/17 Time of Evaluation: 19:00 - Subjective Subjective: Pt seen and examined at bedside, NAD, is stable for transfer back to [facility] at [place] Objective - Vital Signs/Intake and Output Vital Signs (last 24 hours): Temp Pulse Resp BP Pulse Ox 98.1 F 71 20 185/93 H 97 02/27/17 16:00 02/27/17 18:49 02/27/17 16:00 02/27/17 18:49 02/27/17 16:00 - Medications Medications: Current Medications Aspirin (Ecotrin) 81 mg PO DAILY [facility] Last Admin: 02/27/17 10:57 Dose: 81 mg Clopidogrel Bisulfate (Plavix) 75 mg PO DAILY [facility] Last Admin: 02/27/17 10:58 Dose: 75 mg Darunavir (Prezista) 800 mg PO DAILY [facility] Last Admin: 02/27/17 10:58 Dose: 800 mg Emtricitabine/Tenofovir (Truvada 200 Mg-300 Mg) 1 tab PO DAILY [facility] Last Admin: 02/27/17 10:57 Dose: 1 tab Enalapril Maleate (Vasotec) 20 mg PO BID [facility] Last Admin: 02/27/17 19:04 Dose: Not Given Enoxaparin Sodium (Lovenox) 40 mg SC DAILY [facility] Last Admin: 02/27/17 10:59 Dose: 40 mg Guaifenesin/Dextromethorphan (Robitussin Dm) 10 ml PO Q4H PRN PRN Reason: Cough and congestion Last Admin: 02/27/17 13:22 Dose: 10 ml Hydrochlorothiazide (Hydrodiuril) 25 mg PO DAILY [facility] Last Admin: 02/27/17 10:58 Dose: 25 mg Metoprolol Succinate (Toprol Xl) 25 mg PO DAILY [facility] Last Admin: 02/27/17 10:58 Dose: 25 mg Nitroglycerin (Nitro-Bid 2% Oint) 1 ea TOP Q8 [facility] Last Admin: 02/27/17 21:37 Dose: 1 ea Ritonavir (Norvir) 100 mg PO DAILY [facility] Last Admin: 02/27/17 10:58 Dose: 100 mg Rosuvastatin Calcium (Crestor) 10 mg PO HS [facility] Last Admin: 02/27/17 21:37 Dose: 10 mg - Labs Labs: 02/24/17 15:18 02/24/17 15:18 PT 11.5 SECONDS (9.7-12.2) 02/24/17 15:18 INR 1.0 02/24/17 15:18 APTT 33 SECONDS (21-34) 02/24/17 15:18 Assessment and Plan (1) TIA (transient ischemic attack) Status: Acute (2) Weakness Status: Acute (3) Anemia Status: Acute (4) HIV (human immunodeficiency virus infection) Status: Acute (5) HTN (hypertension) Status: Acute
[2017-02-27 23:53] VITALS: BP 133/84; PULSE 65; TEMP 98.4
--- NOTE | 2017-03-02 23:01 | CP.PCM.DIS ---
Provider - Provider Date of Admission: 02/24/17 15:58 Attending physician: Marco Sepulveda MD Time Spent in preparation of Discharge (in minutes): 45 Diagnosis - Discharge Diagnosis (1) TIA (transient ischemic attack) Status: Acute (2) Weakness Status: Acute (3) Anemia Status: Acute (4) HIV (human immunodeficiency virus infection) Status: Acute (5) HTN (hypertension) Status: Acute Hospital Course - Lab Results Lab Results: Most Recent Lab Values WBC 8.9 K/uL (4.8-10.8) D 02/24/17 15:18 RBC 4.50 Mil/uL (3.80-5.20) 02/24/17 15:18 Hgb 13.2 g/dL (11.0-16.0) D 02/24/17 15:18 Hct 39.8 % (34.0-47.0) 02/24/17 15:18 MCV 88.5 fL (81.0-99.0) D 02/24/17 15:18 MCH 29.4 pg (27.0-31.0) 02/24/17 15:18 MCHC 33.2 g/dL (33.0-37.0) 02/24/17 15:18 RDW 15.1 % (11.5-14.5) H 02/24/17 15:18 Plt Count 219 K/uL (130-400) D 02/24/17 15:18 MPV 8.3 fL (7.2-11.7) 02/24/17 15:18 Neut % (Auto) 58.5 % (50.0-75.0) 02/24/17 15:18 Lymph % (Auto) 31.7 % (20.0-40.0) 02/24/17 15:18 [place] % (Auto) 7.0 % (0.0-10.0) 02/24/17 15:18 Eos % (Auto) 1.8 % (0.0-4.0) 02/24/17 15:18 Baso % (Auto) 1.0 % (0.0-2.0) 02/24/17 15:18 Neut # 5.2 K/uL (1.8-7.0) 02/24/17 15:18 Lymph # 2.8 K/uL (1.0-4.3) 02/24/17 15:18 [place] # 0.6 K/uL (0.0-0.8) 02/24/17 15:18 Eos # 0.2 K/uL (0.0-0.7) 02/24/17 15:18 Baso # 0.1 K/uL (0.0-0.2) 02/24/17 15:18 PT 11.5 SECONDS (9.7-12.2) 02/24/17 15:18 INR 1.0 02/24/17 15:18 APTT 33 SECONDS (21-34) 02/24/17 15:18 Sodium 136 mmol/L (132-148) 02/24/17 15:18 Potassium 3.8 mmol/L (3.6-5.2) 02/24/17 15:18 Chloride 99 mmol/L (98-107) 02/24/17 15:18 Carbon Dioxide 26 mmol/L (22-30) 02/24/17 15:18 Anion Gap 16 (10-20) 02/24/17 15:18 BUN 20 mg/dL (7-17) H 02/24/17 15:18 Creatinine 0.8 mg/dL (0.7-1.2) 02/24/17 15:18 Est GFR ( Amer) > 60 02/24/17 15:18 Est GFR (Non-Af Amer) > 60 02/24/17 15:18 POC Glucose (mg/dL) 88 mg/dL (65-110) 02/27/17 11:38 Random Glucose 86 mg/dL (65-105) 02/24/17 15:18 Hemoglobin A1c 5.6 % (4.2-6.5) 02/24/17 15:18 Calcium 9.2 mg/dl (8.6-10.4) 02/24/17 15:18 Total Bilirubin 0.8 mg/dL (0.2-1.3) 02/24/17 15:18 AST 24 U/L (14-36) 02/24/17 15:18 ALT 36 U/L (9-52) 02/24/17 15:18 Alkaline Phosphatase 83 U/L (38-126) 02/24/17 15:18 Troponin I < 0.0120 ng/mL (0.00-0.120) 02/24/17 15:18 Total Protein 9.6 g/dL (6.3-8.3) H 02/24/17 15:18 Albumin 4.8 g/dL (3.5-5.0) 02/24/17 15:18 Globulin 4.8 gm/dL (2.2-3.9) H 02/24/17 15:18 Albumin/Globulin Ratio 1.0 (1.0-2.1) 02/24/17 15:18 Triglycerides 166 mg/dL (0-149) H D 02/24/17 15:18 Cholesterol 143 mg/dL (0-199) 02/24/17 15:18 LDL Cholesterol Direct 67 mg/dL (0-129) 02/24/17 15:18 HDL Cholesterol 45 mg/dL (30-70) 02/24/17 15:18 Urine Color Yellow (YELLOW) 02/24/17 16:03 Urine Clarity Clear (Clear) 02/24/17 16:03 Urine pH 6.0 (5.0-8.0) 02/24/17 16:03 Ur Specific [place] 1.021 (1.003-1.030) 02/24/17 16:03 Urine Protein Negative mg/dL (NEGATIVE) 02/24/17 16:03 Urine Glucose (UA) Normal mg/dL (Normal) 02/24/17 16:03 Urine Ketones Negative mg/dL (NEGATIVE) 02/24/17 16:03 Urine Blood 1+ (NEGATIVE) H 02/24/17 16:03 Urine Nitrate Negative (NEGATIVE) 02/24/17 16:03 Urine Bilirubin Negative (NEGATIVE) 02/24/17 16:03 Urine Urobilinogen Normal mg/dL (0.2-1.0) 02/24/17 16:03 Ur Leukocyte Esterase Neg Mer/uL (Negative) 02/24/17 16:03 Urine WBC (Auto) 2 /hpf (0-5) 02/24/17 16:03 Urine RBC (Auto) 6 /hpf (0-3) H 02/24/17 16:03 Ur Squamous Epith Cells 2 /hpf (0-5) 02/24/17 16:03 Urine Bacteria Rare (<OCC) 02/24/17 16:03 Blood Type O POSITIVE 02/24/17 15:18 Antibody Screen Negative 02/24/17 15:18 - Hospital Course Hospital Course: Pt seen and examined at bedside, NAD, is stable for transfer back to [facility] at [place] Discharge Exam - Head Exam Head Exam: ATRAUMATIC, NORMAL INSPECTION, NORMOCEPHALIC - Eye Exam Eye Exam: EOMI, Normal appearance, PERRL Pupil Exam: NORMAL ACCOMODATION, PERRL - ENT Exam ENT Exam: Mucous Membranes Moist - Respiratory Exam Respiratory Exam: Decreased Breath Sounds, Rales - Cardiovascular Exam Cardiovascular Exam: REGULAR RHYTHM, +S1, +S2 - GI/Abdominal Exam GI & Abdominal Exam: Normal Bowel Sounds - Neurological Exam Neurological exam: Alert, CN II-XII Intact, Normal Gait, Oriented x3, Reflexes Normal - Psychiatric Exam Psychiatric exam: Normal Affect, Normal Mood Discharge Plan - Follow Up Plan Condition: STABLE Disposition: TRANSF TO SNF Instructions: Transient Ischemic Attack (DC), Heart Healthy Diet (DC), Weakness (GEN), Hypertension (DC) Additional Instructions: PLease admit patient under Dr. Sepulveda- call Dr. Sepulveda upon patient arrival to the faciltiy Continue all medication as per med. rec. Referrals: Frank Lopez MD [Staff Provider] - Marco Sepulveda MD [Staff Provider] -
== END 2017-02-27 23:55 | DRG 532 ==
LOC: C.ER 14:25 → C.9E 15:58 → C.6T 19:04
PROVIDERS: ADMIT Internal Medicine; ATTEND Internal Medicine
DX: G45.9 Transient cerebral ischemic attack, unspecified (principal); B20 Human immunodeficiency virus [HIV] disease; G81.91 Hemiplegia, unspecified affecting right dominant side; H74.8X2 Other specified disorders of left middle ear and mastoid; D64.9 Anemia, unspecified; I25.10 Atherosclerotic heart disease of native coronary artery without angina pectoris; I10 Essential (primary) hypertension; G62.9 Polyneuropathy, unspecified; E78.5 Hyperlipidemia, unspecified; Z86.73 Personal history of transient ischemic attack (TIA), and cerebral infarction without residual deficits; Z87.891 Personal history of nicotine dependence; Z95.1 Presence of aortocoronary bypass graft